=== PATIENT | female | born 1955 | race Caucasian/White ===

== ENCOUNTER → 2016-11-24 | Day surgery (SDC) | payer BC ==
[~2016-11-24] MED LIST: ASPI-482 PO; ESTR30CR VG; FENTANYL PF 100 MCG/2 ML VIAL. IV PRN; HYDROMORPHONE 2 MG/ML VIAL. IV PRN; IV RINGERS,LACTATED 1000ML 1,000 ML IV SCH; LIDOCAINE 1% 1 ML SYRINGE. ID PRN; LIDOCAINE 2% PF Vial for OR 5 ML VIAL. ONE; MIDAZOLAM HCL 2 MG/2 ML VIAL. IV PRN; MORPHINE SULFATE 2 MG/ML DISP.SYRIN. IV PRN; ONDANSETRON PF 4 MG/2 ML VIAL. IV PRN; PROCHLORPERAZINE 10 MG/2 ML VIAL. IV PRN; PROPOFOL 20 ML IV ONE
[2016-11-24 11:10] VITALS: BP 118/70
--- NOTE | 2016-11-28 16:41 | PATHOLOGY ---
PATHOLOGY REPORT * * * * * * * * FINAL DIAGNOSIS: A. Small bowel biopsy: - No significant pathologic abnormalities. B. Gastric biopsy, antrum: - Consistent with mild reactive gastropathy, with focal mild chronic inflammation. C. Esophageal biopsy, mid esophagus: - Segments of mildly hyperplastic squamous esophageal mucosa identified. D. Colorectal biopsies, rectal polyps: - Hyperplastic polyps. E. Colon biopsy, sigmoid polyp: - Hyperplastic polyp. F. Esophageal biopsy, distal esophagus: - Segments of hyperplastic squamous esophageal mucosa and gastric mucosa showing focal mild to moderate chronic inflammation, consistent with reflux esophagitis. COMMENT: Sections of the small bowel biopsy reveal segments of duodenal and small intestine mucosa. Where best oriented, the mucosal villi appear normal. There are no sprue-like changes or significant inflammatory changes. Sections of the gastric antral biopsy show congestion, mild foveolar hyperplasia, and focal mild chronic inflammation with scattered admixed eosinophils. An immunoperoxidase stain for Helicobacter is obtained. No Helicobacter organisms are identified. There is no evidence of malignancy. Sections of the distal esophageal biopsy reveal a segment of esophagogastric mucosa and two segments of gastric mucosa. The squamous esophageal mucosa is hyperplastic. There is focal mild to moderate chronic inflammation. The findings are consistent with reflux. There is no evidence of White's change, dysplasia, or malignancy. Sections of the mid esophageal biopsy reveal segments of slightly hyperplastic squamous esophageal mucosa. There is no evidence of White's change, dysplasia, or malignancy. Sections of the sigmoid colon and rectal biopsies reveal hyperplastic polyps. There are no adenomatous changes or evidence of malignancy. (JPM:mgr; d/t: 11/28/16) Special Stain Performed: Immunoperoxidase stain for Helicobacter (B1) REPORT ELECTRONICALLY SIGNED BY: Juan Dawson M.D. DATE/TIME: 11/28/2016 16:41 * * * * * * * * GROSS PATHOLOGY: A. Received in formalin labeled "Joann Cruzz, small bowel biopsy," are six segments of figueroa soft tissue measuring 0.9 x 0.8 x 0.2 cm in aggregate dimensions and ranging from 0.1 to 0.4 cm in maximum dimension. The specimen is submitted entirely in cassette A1. B. Received in formalin labeled "Joann Leticia, gastric antrum biopsy," are three segments of figueroa soft tissue measuring 0.7 x 0.6 x 0.1 cm in aggregate dimensions and ranging from 0.4 to 0.5 cm in maximum dimension. The specimen is submitted entirely in cassette B1. C. Received in formalin labeled "Joann Babin, mid esophagus biopsy," are two segments of figueroa soft tissue measuring 0.5 x 0.4 x 0.1 cm in aggregate dimensions and ranging from 0.4 to 0.5 cm in maximum dimension. The specimen is submitted entirely in cassette C1. D. Received in formalin labeled "Joann Babin, rectal polyps," are two segments of figueroa soft tissue measuring 0.5 x 0.4 x 0.1 cm in aggregate dimensions and ranging from 0.3 to 0.5 cm in maximum dimension. The specimen is submitted entirely in cassette D1. E. Received in formalin labeled "Joann Babin, sigmoid polyp," is a segment of figueroa soft tissue measuring 0.7 cm in maximum dimension. The specimen is submitted entirely in cassette E1. F. Received in formalin labeled "Joann Babin, distal esophagus biopsy," are three segments of figueroa soft tissue measuring 0.6 x 0.5 x 0.1 cm in aggregate dimensions and ranging from 0.4 to 0.5 cm in maximum dimension. The specimen is submitted entirely in cassette F1. (CAA; 11/25/2016) INITIAL CPT CODE(S): A; 28559 B; 55567, 18401 C; 28460 D; 29725 E; 41267 F; 48696 Professional services [place] [address] Technical services performed by [facility] at [address] [place] [address], [facility] [address] [place] [address]. SPECIMEN(S) RECEIVED: A.Small bowel biopsy B.Gastric antrum biopsy C.Mid esophagus biopsy D.Rectal polyps E.Sigmoid polyp F.Distal esophagus biopsy CLINICAL HISTORY: Abdominal pain PATIENT: JOANN BABIN /AGE: 312/22/1955 (Age: 60) PATIENT #: [id number] ALT CASE #: SPECIMEN COLLECTION DATE: 11/24/2016 SPECIMEN RECEIVED DATE: 11/25/2016 [facility] - [address] [place] [address] - PHONE: [phone] * * * END OF REPORT * * *
== END | disposition home or self-care (01) ==
LOC: ENDOS 09:02
PROVIDERS: ATTEND Internal Medicine Gastroenterology
DX: K62.1 Rectal polyp (principal); D12.5 Benign neoplasm of sigmoid colon; K64.0 First degree hemorrhoids; Z86.010 Personal history of colon polyps; F17.200 Nicotine dependence, unspecified, uncomplicated; K21.0 Gastro-esophageal reflux disease with esophagitis; I10 Essential (primary) hypertension; K29.70 Gastritis, unspecified, without bleeding; Z90.710 Acquired absence of both cervix and uterus; Z87.39 Personal history of other diseases of the musculoskeletal system and connective tissue; Z85.118 Personal history of other malignant neoplasm of bronchus and lung; Z72.89 Other problems related to lifestyle
CPT/HCPCS: 43239; 43450; 45380; J2704

== ENCOUNTER 2019-11-12 18:26 | Emergency (ER) | payer BC ==
[~2019-11-12] VITALS: Ht 165.1 cm; Wt 81.0 kg
[~2019-11-12 18:26] MED LIST changes: -FENTANYL PF 100 MCG/2 ML VIAL. IV PRN; -HYDROMORPHONE 2 MG/ML VIAL. IV PRN; -IV RINGERS,LACTATED 1000ML 1,000 ML IV SCH; -LIDOCAINE 1% 1 ML SYRINGE. ID PRN; -LIDOCAINE 2% PF Vial for OR 5 ML VIAL. ONE; -MIDAZOLAM HCL 2 MG/2 ML VIAL. IV PRN; -MORPHINE SULFATE 2 MG/ML DISP.SYRIN. IV PRN; -ONDANSETRON PF 4 MG/2 ML VIAL. IV PRN; -PROCHLORPERAZINE 10 MG/2 ML VIAL. IV PRN; -PROPOFOL 20 ML IV ONE
[2019-11-12 19:50] VITALS: BP 134/84
[2019-11-12] MEDS: IV NORMAL SALINE 1000ML BAG 1,000 ML IV ONE (21:15)
[2019-11-12 21:17] LABS: BASO % 1 % (0-3); EOS % 0 % (0-3); HEMATOCRIT 43.5 % (36.0-47.0); HEMOGLOBIN 14.3 g/dL (12.0-15.5); LYMPH # 0.7 x10^3/uL (1.0-4.8); LYMPH % 10 % (24-48); MEAN CORPUSCULAR HEMOGLOBIN 29 pg (25-35); MEAN CORPUSCULAR HGB CONC 33 g/dL (31-37); MEAN CORPUSCULAR VOLUME 88 fL (79-100); MONO # 0.6 x10^3/uL (0.0-1.1); MONO % 10 % (0-9); NEUT # 5.4 x10^3/uL (1.8-7.7); NEUT % 80 % (31-73); PLATELET COUNT 210 x10^3/uL (140-400); RED BLOOD COUNT 4.94 x10^6/uL (3.50-5.40); RED CELL DISTRIBUTION WIDTH 13.6 % (11.5-14.5); WHITE BLOOD COUNT 6.8 x10^3/uL (4.0-11.0)
[2019-11-12] MEDS: ONDANSETRON PF 4 MG/2 ML VIAL. IVP ONE (21:19)
[2019-11-12 22:19] LABS: CALCIUM 8.4 mg/dL (8.5-10.1); CREATININE 0.9 mg/dL (0.6-1.0); GFR 63.4; POTASSIUM 3.8 mmol/L (3.5-5.1)
[2019-11-12 22:26] LABS: ALBUMIN 3.2 g/dL (3.4-5.0); ALBUMIN/GLOBULIN RATIO 0.9 (1.0-1.7); TOTAL BILIRUBIN 0.6 mg/dL (0.2-1.0); TOTAL PROTEIN 6.6 g/dL (6.4-8.2)
[2019-11-12 22:54] LABS: INFLUENZA A PATIENT NEGATIVE (NEGATIVE); INFLUENZA B PATIENT NEGATIVE (NEGATIVE)
[2019-11-13] MEDS ORDERED: ONDA4TAB7 PO (00:17)
[2019-11-13] MEDS ORDERED: HYDR-2163 PO (00:17)
--- NOTE | 2019-11-13 04:41 | PHYS DOC ---
Past Medical History Past Medical History: High Cholesterol Past Surgical History: Cancer Surgery Additional Past Surgical Histo: PART OF HER RIGHT LUNG WAS REMOVED Smoking Status: Never Smoker Alcohol Use: Occasionally Adult General Chief Complaint Chief Complaint: NAUSEA/VOMITING/DIARRHA HPI HPI Patient is a 63 year old female who presents with congestion, cough and fever starting yesterday. Patient was invited by her PCP and placed on prednisone and Zithromax. Seeming, patient reports nausea and vomiting with multiple episodes of emesis. Reports generalized weakness and malaise. Denies abdominal pain and diarrhea. No chest pain or shortness of breath. No other acute symptoms or complaints. [] Review of Systems Review of Systems Review of systems as per history of present illness. All other review symptoms are negative. All other systems were reviewed and found to be within normal limits, except as documented in this note. Current Medications Current Medications Current Medications Medications (Trade) Dose Ordered Sig/Moriah Start Time Stop Time Status Last Admin Dose Admin Ondansetron HCl (Zofran) 4 mg 1X ONCE 11/12/19 21:15 11/12/19 21:16 DC 11/12/19 21:19 4 MG Sodium Chloride 1,000 ml @ 1,000 mls/hr 1X ONCE 11/12/19 21:15 11/12/19 22:14 DC 11/12/19 21:15 1,000 MLS/HR Allergies Allergies Allergies Coded Allergies Type Severity Reaction Last Updated Verified No Known Drug Allergies 11/24/16 No Physical Exam Physical Exam Constitutional: Well developed, well nourished, no acute distress, non-toxic appearance. [] HENT: Normocephalic, atraumatic, bilateral external ears normal, oropharynx moist, no oral exudates, nose normal. [] Eyes: PERRLA, EOMI, conjunctiva normal, no discharge. [] Neck: Normal range of motion, no tenderness, supple, no stridor. [] Cardiovascular:Heart rate regular rhythm, no murmur [] Lungs & Thorax: Bilateral breath sounds clear to auscultation [] Abdomen: Bowel sounds normal, soft, no tendernes. [] Skin: Warm, dry, no erythema, no rash. [] Back: No tenderness, no CVA tenderness. [] Extremities: No tenderness, no cyanosis, no clubbing, ROM intact, no edema. [] Neurologic: Alert and oriented X 3, normal motor function, normal sensory function, no focal deficits noted. [] Psychologic: Affect normal, judgement normal, mood normal. [] Current Patient Data Vital Signs Vital Signs Date Time Temp Pulse Resp B/P (MAP) Pulse Ox O2 Delivery O2 Flow Rate FiO2 11/12/19 19:50 100.0 105 18 134/84 (101) 93 Room Air 3.0 100.0 Lab Values Laboratory Tests Test 11/12/19 19:52 11/12/19 21:00 11/12/19 22:02 Influenza Type A Antigen Negative (NEGATIVE) Influenza Type B Antigen Negative (NEGATIVE) White Blood Count 6.8 x10^3/uL (4.0-11.0) Red Blood Count 4.94 x10^6/uL (3.50-5.40) Hemoglobin 14.3 g/dL (12.0-15.5) Hematocrit 43.5 % (36.0-47.0) Mean Corpuscular Volume 88 fL (79-100) Mean Corpuscular Hemoglobin 29 pg (25-35) Mean Corpuscular Hemoglobin Concent 33 g/dL (31-37) Red Cell Distribution Width 13.6 % (11.5-14.5) Platelet Count 210 x10^3/uL (140-400) Neutrophils (%) (Auto) 80 % (31-73) H Lymphocytes (%) (Auto) 10 % (24-48) L Monocytes (%) (Auto) 10 % (0-9) H Eosinophils (%) (Auto) 0 % (0-3) Basophils (%) (Auto) 1 % (0-3) Neutrophils # (Auto) 5.4 x10^3/uL (1.8-7.7) Lymphocytes # (Auto) 0.7 x10^3/uL (1.0-4.8) L Monocytes # (Auto) 0.6 x10^3/uL (0.0-1.1) Eosinophils # (Auto) 0.0 x10^3/uL (0.0-0.7) Basophils # (Auto) 0.0 x10^3/uL (0.0-0.2) Sodium Level 141 mmol/L (136-145) Potassium Level 3.8 mmol/L (3.5-5.1) Chloride Level 106 mmol/L (98-107) Carbon Dioxide Level 27 mmol/L (21-32) Anion Gap 8 (6-14) Blood Urea Nitrogen 16 mg/dL (7-20) Creatinine 0.9 mg/dL (0.6-1.0) Estimated GFR (Cockcroft-Gault) 63.4 BUN/Creatinine Ratio 18 (6-20) Glucose Level 105 mg/dL (70-99) H Calcium Level 8.4 mg/dL (8.5-10.1) L Total Bilirubin 0.6 mg/dL (0.2-1.0) Aspartate Amino Transferase (AST) 25 U/L (15-37) Alanine Aminotransferase (ALT) 41 U/L (14-59) Alkaline Phosphatase 56 U/L (46-116) Total Protein 6.6 g/dL (6.4-8.2) Albumin 3.2 g/dL (3.4-5.0) L Albumin/Globulin Ratio 0.9 (1.0-1.7) L Lipase 135 U/L (73-393) Laboratory Tests 11/12/19 21:00 Laboratory Tests 11/12/19 22:02 EKG EKG [] Radiology/Procedures Radiology/Procedures [] Course & Med Decision Making Course & Med Decision Making Pertinent Labs and Imaging studies reviewed. (See chart for details) [Abdomen significant improvement with treatment. No vomiting in the ED. Abdomen remained soft, non-tender and reevaluation. We'll treat supportively with PCP follow-up. Return precautions reviewed. Patient verbalizes understanding and agreement discharge instructions prior to departure.] Dragon Disclaimer Dragon Disclaimer This electronic medical record was generated, in whole or in part, using a voice recognition dictation system. Departure Departure Impression: Primary Impression: Nausea & vomiting Additional Impression: Viral bronchitis Disposition: HOME, SELF-CARE Condition: GOOD Patient Instructions: Nausea and Vomiting, [id number], Bronchitis Additional Instructions: Please increase fluids and continue home antibiotics and steroids. Take newly prescribed medications as directed. Follow-up your PCP in 3-5 days as needed if symptoms persist. Return to the ED if new or worsening symptoms.. Scripts Hydrocodone Bit/Acetaminophen (HYDROCODONE-APAP 5-300) 1 Each Tablet 1 TAB PO PRN BID PRN for pain MDD 2 Tablet(s) for 3 Days, #12 TAB 0 Refills Prov: BELA DENNIS DO 11/13/19 Ondansetron Hcl (ZOFRAN) 4 Mg Tablet 1 TAB PO Q6HRS, #10 TAB 0 Refills Prov: BELA DENNIS DO 11/13/19 Problem Qualifiers BELA DENNIS DO Nov 13, 2019 04:41
== END 2019-11-13 00:50 | disposition home or self-care (01) ==
LOC: ER 18:26
DX: J20.8 Acute bronchitis due to other specified organisms (principal); R11.2 Nausea with vomiting, unspecified; R09.81 Nasal congestion; R05 Cough; R50.9 Fever, unspecified; E78.00 Pure hypercholesterolemia, unspecified; Z98.890 Other specified postprocedural states
CPT/HCPCS: 36415; 80053; 83690; 85025; 87804; 96361; 96374; 99283; J2405; J7030